=== PATIENT | female | born 1950 | race Caucasian/White ===

== ENCOUNTER 2017-05-24 16:53 | Emergency (ER) | payer MEDICARE ==
[~2017-05-24] VITALS: Ht 160 cm; Wt 78.0 kg
[~2017-05-24 16:53] MED LIST: ACET-687 PO; ALBU2.5V2 IH; ALPR0.25 PO; ALPR0.5T PO; ALPR1TAB6 PO; AMLO10TA2 PO; ASPI-655 PO; BUDE0.5A3 IH; BUDE0.5A3 NEB; DEXA1TAB PO; DICL1TAB5 PO; DIPH1TAB PO; ENOX40DI SQ; ESCI20TA PO; FAMO-75 PO; FAMO20TA5 PO; FLUT1AER IH; FLUT1DIS5 IH; FURO-80 PO; FURO-81 PO; GLIM4TAB2 PO; GUAI600T31 PO; INSU100I18 SQ; INSU100V8 SQ; IPRA4AER IH; Ipratropium/Albuterol Sulfate IH; LEVO500T8 PO; LEVO88TA2 PO; LISI-410 PO; LISI-414 PO; MONT10TA6 PO; POTA10CA PO; POTA20TA14 PO; SITA100T PO; SITA50TA PO; [UNRECOGNIZED DRUG - CODE] PO
[2017-05-24] MEDS ORDERED: DUONEB 0.5 MG-3 MG/3 ML SOLN IH STA (17:17)
[2017-05-24] MEDS ORDERED: DECADRON IH STA (17:17)
[2017-05-24] MEDS ORDERED: SOLU-MEDROL IM STA (17:17)
[2017-05-24] MEDS ORDERED: DUONEB 0.5 MG-3 MG/3 ML SOLN IH ONE (17:20)
[2017-05-24] MEDS ORDERED: SOLU-MEDROL ONE (17:20)
[2017-05-24] MEDS ORDERED: DECADRON ONE (17:20)
--- NOTE | 2017-05-24 17:21 | ER.PDOC ---
General Chief Complaint: Dyspnea/Respdistress Stated Complaint: SHORT OF BREATH,HIGH BP Time seen by MD: 17:19 Source: patient Exam Limitations: no limitations History of Present Illness Initial Comments Difficulty breathing for 4 days. No cough. Patient has not taken her Lasix for past few days because she forgot it at home. Severity: moderate Prior Episodes/Possible Cause: occasional episodes, chronic episodes Modifying Factors: improves with albuterol nebulizer Associated Symptoms: cough, wheezing Prior symptoms/Treatment: Similar symptoms previous Allergies: Coded Allergies: No Known Allergies (Unverified , 09/19/14) Home Meds Active Scripts Famotidine (FAMOTIDINE) 20 Mg Tablet, 20 MG PO BID for 30 Days, TABLET Prov:PREMA WATT MD 12/24/15 [Ipratropium/Albuterol Sulfate] 3 ML AMPUL.NEB No Conflict Check, 3 ML IH RTTID for 30 Days Prov:PREMA WATT MD 12/24/15 Albuterol Sulfate (ALBUTEROL SULFATE) 2.5 Mg/3 Ml Vial.neb, 2.5 MG IH PRN Y for WHEEZING for 30 Days Prov:PREMA WATT MD 12/24/15 Budesonide (PULMICORT) 0.5 Mg/2 Ml Ampul.neb, 0.5 MG IH RTBID, #30 BOTTLE Prov:PREMA WATT MD 10/04/14 Reported Medications Levofloxacin (LEVAQUIN) 500 Mg Tablet, 1 TAB PO DAILY for ANTIBIOTIC, #7 TAB 12/24/15 Potassium Chloride (POTASSIUM CHLORIDE) 20 Meq Tab.er.prt, 40 MEQ PO DAILY, #60 12/24/15 Furosemide (LASIX) 40 Mg Tablet, 1 TAB PO DAILY for WATER PILL, #60 TAB 0 Refills 12/24/15 Fluticasone/Vilanterol (Breo Ellipta 100-25 Mcg INH) 1 Each Aer.pow.ba, 1 EACH IH DAILY 12/17/15 Ipratropium/Albuterol Sulfate (COMBIVENT RESPIMAT INHAL SPRAY) 4 Gm Aer.w.adap, 4 GM IH PRN Y for SHORTNESS OF BREATH, INHALER 12/17/15 Sitagliptin Phosphate (JANUVIA) 50 Mg Tablet, 1 TAB PO DAILY, #30 TAB 5 Refills 12/17/15 Lisinopril (LISINOPRIL) 20 Mg Tablet, 1 TAB PO DAILY, #30 TAB 5 Refills 12/17/15 Insulin Glargine,Hum.rec.anlog (LANTUS) 100 Unit/1 Ml Vial, 10 UNIT SQ HS, VIAL 12/17/15 Insulin Aspart (NOVOLOG) 100 Unit/1 Ml Insuln.pen, 2 UNIT SQ AC 12/17/15 Alprazolam (XANAX) 0.5 Mg Tablet, 1 TAB PO TID, #90 TAB 12/17/15 Levothyroxine Sodium (SYNTHROID) 88 Mcg Tablet, 1 TAB PO DAILY, #30 TAB 5 Refills 12/17/15 Past Medical History Medical History: asthma, cancer, COPD, diabetes, emphysema, thyroid disease Surgical History: appendectomy, cancer surgery, hysterectomy, tonsillectomy Social History Smoking: non-smoker Alcohol Use: none Drug Use: none Review of Systems Constitutional: no symptoms reported EENTM: no symptoms reported Respiratory: see HPI Cardiovascular: no symptoms reported Gastrointestinal: no symptoms reported Genitourinary: no symptoms reported All Other Systems: Reviewed and Negative Physical Exam General Appearance: Mild Distress HEENT: Normal ENT Inspection Neck: Non-Tender, Full Range of Motion, Supple Respiratory: chest non-tender, respiratory distress, decreased breath sounds, wheezing Cardiovascular: Normal Peripheral Pulses, Regular Rate, Rhythm, No Edema, No Gallop, No JVD, No Murmur Gastrointestinal: Normal Bowel Sounds, No Organomegaly, No Pulsatile Mass, Non Tender, Soft Extremities: Normal Range of Motion 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 Results/Orders Results/Orders Laboratory Tests Test 05/24/17 17:35 05/24/17 17:54 White Blood Count 5.6 10^3/uL (4.5-11.0) Red Blood Count 4.03 10^6/uL (4.00-5.20) Hemoglobin 10.8 g/dL (12.0-15.0) Hematocrit 34.5 % (36.0-46.0) Mean Corpuscular Volume 85.6 fL (78-100) Mean Corpuscular Hemoglobin 26.8 pg (26-34) Mean Corpuscular Hemoglobin Concent 31.3 g/dL (33-37) Red Cell Distribution Width 14.2 % (11.5-14.5) Platelet Count 147 10^3/uL (150-400) Mean Platelet Volume 10.7 fL (7.8-11.0) Neutrophils (%) (Auto) 79.8 % (41.0-85.0) Lymphocytes (%) (Auto) 5.7 % (24.0-44.0) Monocytes (%) (Auto) 13.6 % (5.0-12.0) Neutrophils # (Auto) 4.5 10^3/uL (1.8-7.7) Lymphocytes # (Auto) 0.3 10^3/uL (1.0-4.8) Monocytes # (Auto) 0.8 10^3/uL (0.3-0.8) Absolute Immature Granulocyte (auto 0.03 10^3 u/L (0-2) Eosinophils % 0.2 % (0.0-5.0) Basophils % 0.2 % (0.0-0.2) Basophils # 0.0 10^3/uL (0.0-0.1) Eosinophil Count 0.0 10^3/uL (0.0-0.2) Prothrombin Time 12.0 SEC (9.8-11.9) Prothrombin Time INR (Non-Therap) 1.1 Activated Partial Thromboplast Time 25.6 SEC (24.67-30.72) D-Dimer 0.72 mg/L (0.19-0.49) Sodium Level 141 mmol/L (132-145) Potassium Level 3.5 mmol/L (3.6-5.2) Chloride Level 95.0 mmol/L (96-109) Carbon Dioxide Level 41.9 mmol/L (20.0-32) Anion Gap 7.6 Blood Urea Nitrogen 12 mg/dL (7-18) Creatinine 0.79 mg/dL (0.59-1.40) Estimated GFR () 88.4 (>/=60) BUN/Creatinine Ratio 15.0 Glucose Level 102 mg/dL (70-110) Calcium Level 8.7 mg/dL (8.4-10.5) Total Bilirubin 1.4 mg/dL (0.2-1.0) Aspartate Amino Transf (AST/SGOT) 34 U/L (0-35) Alanine Aminotransferase (ALT/SGPT) 22 U/L (12-78) Alkaline Phosphatase 76 U/L (50-136) Total Creatine Kinase 178 U/L (26-192) Creatine Kinase MB 5.2 ng/mL (0.5-3.6) Troponin I 0.04 ng/mL (0.00-0.05) Pro-B-Type Natriuretic Peptide 2995 pg/mL (0-125) Total Protein 7.2 g/dL (6.4-8.2) Albumin 3.1 g/dL (3.4-5.0) Globulin 4.1 Percent Immature Gran (Cell Imm) 0.50 % (0.00-0.50) Blood Gas Sample Site RT RADIAL ARTERY Blood Gas pH 7.383 (7.350-7.450) Blood Gas PCO2 66.9 mmHg (35.0-45.0) Blood Gas PO2 87.3 mmHg (75.0-100.0) Blood Gas HCO3 39.0 mmol/L (22.0-26.0) Blood Gas Base Excess 11.4 mmol/L (-2.0-2.0) Guilherme Test POSITIVE Arterial Blood Oxygen Saturation 96.4 % (95-) Deoxyhemoglobin 3.6 % (0.2-0.6) Carboxyhemoglobin 0.9 % (0.5-1.5) Methemoglobin 0.0 % (0.2-0.6) Total Hemoglobin 12.0 % (13.5-17.5) Total Oxygen Concentration 16.2 % (13.5-17.5) Lactic Acid (Blood Gas) 0.7 MMOL/L (0.5-1.0) Blood Gas Temperature 37 Oxygen Delivery Method (LAB) NASAL CANNULA FiO2 32 % (20-101) Bicarbonate 41.0 mmol/L (23-27) Administered Medications Medications (Trade) Dose Ordered Sig/Humphrey Route PRN Reason Start Time Stop Time Status Last Admin Dose Admin Albuterol/ Ipratropium (Duoneb 0.5 Mg-3 Mg/3 ml Soln) 3 ml STAT STAT IH 05/24/17 17:17 05/24/17 17:21 DC 05/24/17 18:04 Dexamethasone Sodium Phosphate (Decadron) 4 mg STAT STAT IH 05/24/17 17:17 05/24/17 17:21 DC 05/24/17 18:04 Methylprednisolone Sodium Succinate (Solu-Medrol) 125 mg STAT STAT IM 05/24/17 17:17 05/24/17 17:21 DC 05/24/17 17:24 Progress Progress Spoke to Dr. Muñoz on observing patient in the Hospital but he told me to give her IV Lasix and discharge her home. EKG/XRAY/CT/US EKG: NSR XRAY: chest (Mild pumonary congestion) Course Blood Pressure Systolic: 165 Blood Pressure Diastolic: 111 Blood Pressure Mean: 129 Departure Time of Disposition: 18:48 Disposition: 01 HOME, SELF-CARE Impression: Primary Impression: Acute exacerbation of chronic obstructive pulmonary disease Additional Impression: Congestive heart failure Condition: Stable Referrals: PCP,UNKNOWN (PCP) PRIMARY CARE PROVIDER Additional Instructions: Z pack Prednisone Lasix Potassium Monitor your blood sugar closely and stop Prednisone if greater than 250 F/U with your PCP in 2-3 days Problem Qualifiers Additional Impression: Congestive heart failure Congestive heart failure type: unspecified congestive heart failure type Congestive heart failure chronicity: unspecified congestive heart failure chronicity Qualified Codes: I50.9 - Heart failure, unspecified EDIE PISANO MD May 24, 2017 17:21
--- NOTE | 2017-05-24 17:32 | PCM.EKG ---
[facility] Test Date: 2017-05-24 Test Time: 17:29:24 Pat Name: RUBINA DENNEY Department: Room: Gender: F Tie Man: : 1950 Requested By: EDIE PISANO Order Number: [id number] Reading MD: Measurements Intervals [place] Rate: 68 P: 73 MS: 126 QRS: -39 QRSD: 100 T: 67 QT: 440 QTc: 467 Interpretive Statements Normal sinus rhythm Left axis deviation Abnormal ECG No previous ECG available for comparison Please click the below link to view image of tracing.
--- NOTE | 2017-05-24 17:38 | DIREP ---
PROCEDURE:CHEST 1 VIEW COMPARISON:[facility], CR, XRAY CHEST SINGLE VW, 12/29/2015, 11:10 AM. INDICATIONS:Difficulty breathing FINDINGS: LUNGS/PLEURA:Lordotic projection and low lung volumes. No definite focal infiltrate or pleural effusion. CARDIAC:Median sternotomy. Size difficult to evaluate due to elevated hemidiaphragms. Prominent central pulmonary vascularity. Aortic arch calcifications. MEDIASTINUM:Normal. 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 OTHER:No additional findings. CONCLUSION: 1. Study limited by low lung volumes. 2. Mild pulmonary vascular congestion versus accentuation from low lung volumes. Dictated by: Shikha Gonzales MD on 05/24/2017 at 05:34 PM
[2017-05-24 17:45] LABS: BASOPHIL % 0.2 % (0.0-0.2); EOSINOPHIL % 0.2 % (0.0-5.0); HEMOGLOBIN 10.8 g/dL (12.0-15.0); LYMPHOCYTES # 0.3 10^3/uL (1.0-4.8); LYMPHOCYTES % 5.7 % (24.0-44.0); MEAN CELL HGB 26.8 pg (26-34); MEAN CELL HGB CONCENTRATION 31.3 g/dL (33-37); MEAN CORP VOLUME 85.6 fL (78-100); MEAN PLATELET VOLUME 10.7 fL (7.8-11.0); MONOCYTES # 0.8 10^3/uL (0.3-0.8); MONOCYTES % 13.6 % (5.0-12.0); NEUTROPHIL # 4.5 10^3/uL (1.8-7.7); NEUTROPHILS % 79.8 % (41.0-85.0); RED CELL DISTRIBUTION WIDTH 14.2 % (11.5-14.5); WHITE BLOOD CELL 5.6 10^3/uL (4.5-11.0)
[2017-05-24 18:04] LABS: ABG PCO2 66.9 mmHg (35.0-45.0); ABG PH 7.383 (7.350-7.450); BE(B) 11.4 mmol/L (-2.0-2.0); pO2 87.3 mmHg (75.0-100.0)
[2017-05-24 18:13] LABS: CALCIUM 8.7 mg/dL (8.4-10.5); CARBON DIOXIDE 41.9 mmol/L (20.0-32)
--- NOTE | 2017-05-24 18:31 | NUR ---
MARYSOL SERRANO MBA ON PHONE WITH DR GREGG AT THIS TIME REGARDING PT.
[2017-05-24] MEDS ORDERED: LASIX IV STA (18:48)
[2017-05-24 19:04] VITALS: BP 165/111
[2017-05-24 20:57] LABS: DIFFERENTIAL COMMENT NORMAL; EOSINOPHIL 1 % (1-4); LYMPHOCYTE 3 % (25-36); MONOCYTE 7 % (3-9); SEGMENTED NEUTROPHILS 89 % (31-76)
== END 2017-05-24 19:15 | disposition home or self-care (01) ==
LOC: ER 16:53
DX: J44.1 Chronic obstructive pulmonary disease with (acute) exacerbation (principal); I50.9 Heart failure, unspecified; E07.9 Disorder of thyroid, unspecified; E11.9 Type 2 diabetes mellitus without complications; Z79.4 Long term (current) use of insulin; Z90.710 Acquired absence of both cervix and uterus; Z79.899 Other long term (current) drug therapy
CPT/HCPCS: 36415; 71010; 80053; 82550; 82553; 82803; 83880; 84484; 85025; 85379; 85610; 87040 ×2; 93005; 94640; 96372; 96374; 99285; J1100; J2930; J7620

== ENCOUNTER 2017-05-25 22:20 | Inpatient (IN) | payer MEDICARE ==
[~2017-05-25] VITALS: Ht 154.9 cm; Wt 79.4 kg
--- NOTE | 2017-05-25 22:27 | NUR ---
UPDATE THIS NURSE ADMINISTERED DIPRIVAN DRIP ORDERED. Addendum: 05/26/17 at 1439 by [email or web address] UPDATE [id number] TIME ON ADMINISTRATION OF DIPRIVAN DRIP.
--- NOTE | 2017-05-25 22:27 | NUR ---
ARRIVAL PATIENT TO ER ROOM 2 IN REST DISTRESS, SATS AT 59 ON 6L NC, PATIENT ABGS ACIDODIC, ASSESSMENT COMPLETED, MD AT BEDSIDE, REQUESTING CENTRAL LINE PLACEMENT AND INTUBATION AT THIS TIME, PATIENT HYPERTENSIVE AND TACHACARDIC, THIS NURSE, SLICK RN AND HESHAM RN AT BEDSIDE, ZAYNAB NAVARRETE AT BEDSIDE.
--- NOTE | 2017-05-25 22:44 | NUR ---
CENTRAL LINE PLACED BY DR. VILLARREAL, CONSENTS SIGNED BY DAUGHTER.
--- NOTE | 2017-05-25 22:48 | NUR ---
UPDATE 10MG OF VERSED GIVEN, 100MG OF SUCCS GIVEN
--- NOTE | 2017-05-25 22:51 | NUR ---
UPDATE INTUBATION COMPLETED
--- NOTE | 2017-05-25 22:53 | NUR ---
UPDATE SYKES CATHETER INSERTED
--- NOTE | 2017-05-25 22:54 | NUR ---
UPDATE 50MG SUCCS GIVEN
--- NOTE | 2017-05-25 22:54 | NUR ---
UPDATE EPI 1MG GIVEN Addendum: 05/26/17 at 1435 by [email or web address] TIME ON PATIENT WAS 2354, NOT 5704.
[2017-05-25] MEDS: LEVAQUIN 150 ML IV SCH (23:00)
--- NOTE | 2017-05-25 23:09 | NUR ---
DR GREGG EDP ON PHONE WITH MARYSOL FOR ADMISSION
[2017-05-25 23:11] LABS: BASOPHIL # 0.1 10^3/uL (0.0-0.1); BASOPHIL % 0.1 % (0.0-0.2); HEMOGLOBIN 12.1 g/dL (12.0-15.0); LYMPHOCYTES # 4.6 10^3/uL (1.0-4.8); LYMPHOCYTES % 13.1 % (24.0-44.0); MEAN CELL HGB 26.4 pg (26-34); MEAN CELL HGB CONCENTRATION 30.1 g/dL (33-37); MEAN CORP VOLUME 87.8 fL (78-100); MEAN PLATELET VOLUME 11.3 fL (7.8-11.0); MONOCYTES # 4.7 10^3/uL (0.3-0.8); MONOCYTES % 13.4 % (5.0-12.0); NEUTROPHIL # 25.6 10^3/uL (1.8-7.7); NEUTROPHILS % 72.7 % (41.0-85.0); RED CELL DISTRIBUTION WIDTH 14.4 % (11.5-14.5)
--- NOTE | 2017-05-25 23:15 | NUR ---
UPDATE DR. VILLARREAL ORDERED DIPRAVAN DRIP AT 25MCG/KG/MIN TO BE STARTED BEFORE TRANSPORT.
[2017-05-25 23:16] LABS: WHITE BLOOD CELL 35.2 10^3/uL (4.5-11.0)
[2017-05-25 23:28] LABS: ABG PH 7.088 (7.350-7.450); BE(B) 15.9 mmol/L (-2.0-2.0); HCO3act 53.4 mmol/L (22.0-26.0); pO2 43.8 mmHg (75.0-100.0)
[2017-05-25] MEDS ORDERED: SOLU-MEDROL IV STA (23:28)
[2017-05-25] MEDS ORDERED: NS 1000ML 1,000 ML ONE (23:31)
--- NOTE | 2017-05-25 23:33 | PCM.EKG ---
[facility] Test Date: 2017-05-25 Test Time: 23:11:00 Pat Name: RUBINA DENNEY Department: Room: ICU3 Gender: F Nut Sorter: JOSE : 1950 Requested By: HEATHER VILLARREAL Order Number: [id number] Reading MD: Zeferino PISANO Measurements Intervals [place] Rate: 95 P: 82 [place]: 134 QRS: -70 QRSD: 84 T: 43 QT: 380 QTc: 477 Interpretive Statements Normal sinus rhythm Left anterior fascicular block Nonspecific ST abnormality Abnormal ECG No previous ECG available for comparison Electronically Signed On 05-26-2017 22:34:59 CONSULTING GROUP ANALYST by Zeferino PISANO Please click the below link to view image of tracing.
[2017-05-25 23:35] LABS: ALANINE AMINOTRANSFERASE 22 U/L (12-78); ALKALINE PHOSPHATASE 81 U/L (50-136); ASPARTATE AMINO TRANSFERASE 30 U/L (0-35); CALCIUM 8.8 mg/dL (8.4-10.5); GLUCOSE 255 mg/dL (70-110)
[2017-05-25 23:37] LABS: CARBON DIOXIDE > 45.0 mmol/L (20.0-32)
[2017-05-25] MEDS ORDERED: LEVAQUIN 150 ML IV ONE (23:38)
[2017-05-25] MEDS ORDERED: SOLU-MEDROL ONE (23:38)
--- NOTE | 2017-05-25 23:38 | NUR ---
UPDATE PATIENT DIPRIVAN STOPPED, ASSESSING PATIENT PRESSURES, PATIENT HAS COROITID PULSE, FAMILY ASKS TO BE WITH PATIENT AT THIS TIME.
--- NOTE | 2017-05-25 23:38 | ER.PDOC ---
General Chief Complaint: Dyspnea/Respdistress Stated Complaint: RESP DISTRESS Time seen by MD: 10:45 Source: family History of Present Illness Initial Comments pt has Hx of of COPD had been seen yesterday and she developed severe respiratory distress. Sao2 was low and EMS was called. Timing/Duration: 1-3 hours Severity: severe Activities at Onset: rest Associated Symptoms: weakness Prior symptoms/Treatment: Similar symptoms previous, Recenly Seen, Treated by Doctor Allergies: Coded Allergies: No Known Allergies (Unverified , 09/19/14) Home Meds Active Scripts Famotidine (FAMOTIDINE) 20 Mg Tablet, 20 MG PO BID for 30 Days, TABLET Prov:PREMA WATT MD 12/24/15 [Ipratropium/Albuterol Sulfate] 3 ML AMPUL.NEB No Conflict Check, 3 ML IH RTTID for 30 Days Prov:PREMA WATT MD 12/24/15 Albuterol Sulfate (ALBUTEROL SULFATE) 2.5 Mg/3 Ml Vial.neb, 2.5 MG IH PRN Y for WHEEZING for 30 Days Prov:PREMA WATT MD 12/24/15 Budesonide (PULMICORT) 0.5 Mg/2 Ml Ampul.neb, 0.5 MG IH RTBID, #30 BOTTLE Prov:PREMA WATT MD 10/04/14 Reported Medications Levofloxacin (LEVAQUIN) 500 Mg Tablet, 1 TAB PO DAILY for ANTIBIOTIC, #7 TAB 12/24/15 Potassium Chloride (POTASSIUM CHLORIDE) 20 Meq Tab.er.prt, 40 MEQ PO DAILY, #60 12/24/15 Furosemide (LASIX) 40 Mg Tablet, 1 TAB PO DAILY for WATER PILL, #60 TAB 0 Refills 12/24/15 Fluticasone/Vilanterol (Breo Ellipta 100-25 Mcg INH) 1 Each Aer.pow.ba, 1 EACH IH DAILY 12/17/15 Ipratropium/Albuterol Sulfate (COMBIVENT RESPIMAT INHAL SPRAY) 4 Gm Aer.w.adap, 4 GM IH PRN Y for SHORTNESS OF BREATH, INHALER 12/17/15 Sitagliptin Phosphate (JANUVIA) 50 Mg Tablet, 1 TAB PO DAILY, #30 TAB 5 Refills 12/17/15 Lisinopril (LISINOPRIL) 20 Mg Tablet, 1 TAB PO DAILY, #30 TAB 5 Refills 12/17/15 Insulin Glargine,Hum.rec.anlog (LANTUS) 100 Unit/1 Ml Vial, 10 UNIT SQ HS, VIAL 12/17/15 Insulin Aspart (NOVOLOG) 100 Unit/1 Ml Insuln.pen, 2 UNIT SQ AC 12/17/15 Alprazolam (XANAX) 0.5 Mg Tablet, 1 TAB PO TID, #90 TAB 12/17/15 Levothyroxine Sodium (SYNTHROID) 88 Mcg Tablet, 1 TAB PO DAILY, #30 TAB 5 Refills 12/17/15 Past Medical History Medical History: asthma, cardiac problems, COPD, diabetes, hypertension Surgical History: no surgical history LMP (females 10-50): postmenopause Social History Smoking: non-smoker Alcohol Use: none Drug Use: none Physical Exam General Appearance: Severe Distress, Obese Respiratory: respiratory distress, decreased breath sounds, retractions Cardiovascular: Tachycardia Extremities: Pedal Edema Neurologic/Psychiatric: No Motor/Sensory Deficits Skin: Warm/Dry, Mottled Lymphatic: No Adenopathy Central Line Central Line : Central Line Lumen: triple Central Line Procedure: betadine prep, sterile drapes applied, sterile dressing applied Central Line Postion: subclavian (L) Anesthesia: Lidocaine Progress TLC via seldinger technique took 3 sticks as pt is very dry, Good blood return, CXR TLC in SVC Intubation Intubation : Blade: straight Tube Size (cm): 7.5 Preoxygenated: Yes Medications: Succinylcholine, Versed Post Intubation Xray: Yes Progress/Xray Impression: no PTX, ETT 2 cm above aaron Results/Orders Results/Orders Laboratory Tests Test 05/25/17 22:19 05/25/17 22:40 Blood Gas Sample Site RT RADIAL ARTERY Blood Gas pH 7.088 (7.350-7.450) Blood Gas PCO2 181.0 mmHg (35.0-45.0) Blood Gas PO2 43.8 mmHg (75.0-100.0) Blood Gas HCO3 53.4 mmol/L (22.0-26.0) Blood Gas Base Excess 15.9 mmol/L (-2.0-2.0) Guilherme Test POSITIVE Arterial Blood Oxygen Saturation 60.5 % (95-) Deoxyhemoglobin 38.8 % (0.2-0.6) Carboxyhemoglobin 1.2 % (0.5-1.5) Methemoglobin 0.5 % (0.2-0.6) Total Hemoglobin 14.2 % (13.5-17.5) Total Oxygen Concentration 11.9 % (13.5-17.5) Lactic Acid (Blood Gas) 1.6 MMOL/L (0.5-1.0) Oxygen Delivery Method (LAB) NASAL CANNULA FiO2 45 % (20-101) Bicarbonate 59.0 mmol/L (23-27) White Blood Count 35.2 10^3/uL (4.5-11.0) Red Blood Count 4.58 10^6/uL (4.00-5.20) Hemoglobin 12.1 g/dL (12.0-15.0) Hematocrit 40.2 % (36.0-46.0) Mean Corpuscular Volume 87.8 fL (78-100) Mean Corpuscular Hemoglobin 26.4 pg (26-34) Mean Corpuscular Hemoglobin Concent 30.1 g/dL (33-37) Red Cell Distribution Width 14.4 % (11.5-14.5) Platelet Count 322 10^3/uL (150-400) Mean Platelet Volume 11.3 fL (7.8-11.0) Neutrophils (%) (Auto) 72.7 % (41.0-85.0) Lymphocytes (%) (Auto) 13.1 % (24.0-44.0) Monocytes (%) (Auto) 13.4 % (5.0-12.0) Neutrophils # (Auto) 25.6 10^3/uL (1.8-7.7) Lymphocytes # (Auto) 4.6 10^3/uL (1.0-4.8) Monocytes # (Auto) 4.7 10^3/uL (0.3-0.8) Absolute Immature Granulocyte (auto 0.25 10^3 u/L (0-2) Eosinophils % 0.0 % (0.0-5.0) Basophils % 0.1 % (0.0-0.2) Basophils # 0.1 10^3/uL (0.0-0.1) Eosinophil Count 0.0 10^3/uL (0.0-0.2) Percent Immature Gran (Cell Imm) 0.70 % (0.00-0.50) Progress Progress discussed findings with Dr Baptiste who accepts pt to ICU. Departure Time of Disposition: 23:40 Disposition: 09 ADMITTED INPATIENT Impression: Primary Impression: Acute exacerbation of chronic obstructive pulmonary disease Additional Impression: Respiratory failure Condition: Critical Referrals: PCP,UNKNOWN (PCP) PRIMARY CARE PROVIDER Problem Qualifiers Additional Impression: Respiratory failure Chronicity: acute Respiratory failure complication: hypercapnia Qualified Codes: J96.02 - Acute respiratory failure with hypercapnia HEATHER VILLARREAL MD May 25, 2017 23:38
--- NOTE | 2017-05-25 23:50 | NUR ---
UPDATE EPI 1MG
--- NOTE | 2017-05-25 23:52 | NUR ---
UPDATE PATIENT RYTHM CHECK, PEA
--- NOTE | 2017-05-25 23:54 | NUR ---
UPDATE PATIENT IN PEA
[2017-05-25 23:55] LABS: BAND NEUTROPHILS 2 % (2-6); LYMPHOCYTE 4 % (25-36); MONOCYTE 15 % (3-9); SEGMENTED NEUTROPHILS 79 % (31-76)
--- NOTE | 2017-05-25 23:55 | NUR ---
UPDATE EPI 1MG GIVEN IV
--- NOTE | 2017-05-25 23:57 | NUR ---
ROSC PULSE 167
[2017-05-25] MEDS ORDERED: NS 500ML 500 ML IV ONE (23:59)
[2017-05-26] VITALS (17 sets, daily range): BP systolic 98–165; BP diastolic 53–113
--- NOTE | 2017-05-26 00:03 | DIREP ---
PROCEDURE:CHEST 1 VIEW COMPARISON:[facility], CR, XRAY CHEST SINGLE VW, 12/20/2015, 07:45 AM. [facility], CR, XRAY CHEST SINGLE VW, 05/24/2017, 05:17 PM. [facility], CR, XRAY CHEST SINGLE VW, 12/29/2015, 11:10 AM. INDICATIONS:SOB, COPD exacerbation FINDINGS: Portable frontal view of the chest is provided. The patient is rotated somewhat to the left. LINES/TUBES: ETT is been placed and is well positioned above the aaron at the T3-4 level. Left subclavian catheter is appropriately positioned with its tip overlying the region of the proximal SVC. Gastric catheter is is kinked upon itself in the mid thoracic esophagus with its tip at the T9 level. LUNGS/PLEURA: Mild hyperinflation with flattening of hemidiaphragms, consistent with COPD. No focal consolidation, pleural effusion, or pneumothorax. CARDIAC: Normal size cardiac silhouette and normal vascularity. Stable postoperative changes of prior median sternotomy. Stable calcified plaque the aortic knob. MEDIASTINUM: Normal. BONES: Stable low grade chondroid lesion versus remote bone infarction in the greater tuberosity of the left proximal humerus. Mild, right convexity, thoracic curvature, which may be positional. No acute abnormality. OTHER: No additional findings. CONCLUSION: 1. Gastric catheter is coiled upon itself in the mid thoracic esophagus. Repositioning is recommended. 2. ETT and left subclavian catheter are appropriately positioned. 3. Findings suggestive of COPD. No focal consolidation, pleural effusion, or pneumothorax. 4. Stable postoperative changes of prior median sternotomy. Heart size and pulmonary vasculature are normal. Dictated by: William Steele M.D. On 05/25/2017 at 11:59 PM
--- NOTE | 2017-05-26 00:03 | NUR ---
UPDATE DR. VILLARREAL ON THE PHONE WITH DR. GREGG REQUESTING FLIGHT TO [place] AFTER ROSC ACHIEVED ON PATIENT.
--- NOTE | 2017-05-26 00:07 | NUR ---
UPDATE EPI DRIP 5MCG/MIN
--- NOTE | 2017-05-26 00:08 | NUR ---
UPDATE DR. GREGG DENIED TRANSPORT, PATIENT TO BE ADMITTED TO ICU. GAVE ORDERS TO DR. VILLARREAL, FAMILY MADE AWARE OF SITUATION.
--- NOTE | 2017-05-26 00:12 | NUR ---
UPDATE EPI DRIP @ 15MCG/MIN
--- NOTE | 2017-05-26 00:15 | NUR ---
UPDATE EPI 1MG GIVEN IV HR 63
--- NOTE | 2017-05-26 00:17 | NUR ---
UPDATE PULSE CHECK
--- NOTE | 2017-05-26 00:19 | NUR ---
UPDATE EPI DRIP @ 20MCG/MIN
--- NOTE | 2017-05-26 00:20 | NUR ---
UPDATE PULASE CHECK
--- NOTE | 2017-05-26 00:20 | NUR ---
ROSC PULSE FAINT V FIB ON MONITOR HR 170 0021 SHOCK DELIVERED 200 JOULES 0022 HR 122 PULSES INTACT
--- NOTE | 2017-05-26 00:20 | NUR ---
UPDATE PATIENT RYTHEM CHECK, PEA
--- NOTE | 2017-05-26 00:21 | NUR ---
UPDATE SHOCK @ 150 JOULES
--- NOTE | 2017-05-26 00:22 | NUR ---
UPDATE PULSE CHECK HR AT 166 ROSC
--- NOTE | 2017-05-26 00:23 | NUR ---
ROSC PULSE 150
[2017-05-26] MEDS ORDERED: HEPARIN ONE (00:27)
--- NOTE | 2017-05-26 00:32 | NUR ---
HEPARIN HEPARIN 5000 UNIT BOLUS GIVEN IVP
--- NOTE | 2017-05-26 00:40 | NUR ---
NS NS 2ND LITER HUNG
--- NOTE | 2017-05-26 00:50 | NUR ---
FAMILY FAMILY AT BEDSIDE
--- NOTE | 2017-05-26 01:12 | NUR ---
PUPILS PUPILS 5 MM NON REACTIVE EQUAL
[2017-05-26] MEDS ORDERED: LEVOPHED ONE ×2 (02:13→02:19)
--- NOTE | 2017-05-26 02:22 | NUR ---
levophed levophed 8mg/250ml hung at 10 mcg/ min
--- NOTE | 2017-05-26 02:35 | PCM.EKG ---
[facility] Test Date: 2017-05-26 Test Time: 00:00:18 Pat Name: RUBINA DENNEY Department: Room: ICU3 A Gender: F Coat Finisher: JOSE : 1950 Requested By: HEATHER VILLARREAL Order Number: [id number] Reading MD: Zeferino PISANO Measurements Intervals [place] Rate: 152 P: DC: QRS: -79 QRSD: 126 T: 83 QT: 334 QTc: 531 Interpretive Statements Atrial fibrillation Right bundle branch block Left anterior fascicular block Bifascicular block Septal infarct, age undetermined Abnormal ECG No previous ECG available for comparison Electronically Signed On 05-26-2017 22:35:20 PUBLIC HEALTH REGISTRAR by Zeferino PISANO Please click the below link to view image of tracing.
--- NOTE | 2017-05-26 02:40 | NUR ---
levophed levophed increased to 20mcg/min
[2017-05-26] MEDS ORDERED: NS 1000ML 1,000 ML ONE (03:13)
--- NOTE | 2017-05-26 03:15 | NUR ---
NS LITER #3 HUNG
[2017-05-26] MEDS ORDERED: ZOFRAN IV PRN (03:30)
[2017-05-26] MEDS ORDERED: LEVOPHED 8 MG in NS 250ML 250 ML IV SCH (03:30)
[2017-05-26] MEDS ORDERED: HEPARIN-D5W 20,000 UNIT/500 ML 500 ML IV ONE ×2 (03:30→03:39)
--- NOTE | 2017-05-26 03:37 | NUR ---
levophed increased to 30mcg/min
--- NOTE | 2017-05-26 04:00 | NUR ---
Patient Arrived Patient arrived to unit via stretcher from ED. RT ventilating patient. Patient transferred to bed, ventilator attached to ET tube by RT. Monitors applied in usual fashion, report received from ER nurse, assumed care.
--- NOTE | 2017-05-26 04:30 | NUR ---
Flex Seal Flexiseal inserted along with rectal temp prob per telephone orders from Dr. Muñoz.
[2017-05-26 05:08] LABS: ABG PCO2 45.4 mmHg (35.0-45.0); ABG PH 7.375 (7.350-7.450); BE(B) 0.4 mmol/L (-2.0-2.0); pO2 263.3 mmHg (75.0-100.0)
[2017-05-26 05:19] LABS: BASOPHIL # 0.1 10^3/uL (0.0-0.1); BASOPHIL % 0.1 % (0.0-0.2); HEMOGLOBIN 11.8 g/dL (12.0-15.0); LYMPHOCYTES # 1.1 10^3/uL (1.0-4.8); LYMPHOCYTES % 2.3 % (24.0-44.0); MEAN CELL HGB 26.6 pg (26-34); MEAN CELL HGB CONCENTRATION 30.7 g/dL (33-37); MEAN CORP VOLUME 86.5 fL (78-100); MEAN PLATELET VOLUME 10.9 fL (7.8-11.0); MONOCYTES # 3.1 10^3/uL (0.3-0.8); MONOCYTES % 6.7 % (5.0-12.0); NEUTROPHIL # 42.2 10^3/uL (1.8-7.7); NEUTROPHILS % 90.1 % (41.0-85.0); RED CELL DISTRIBUTION WIDTH 14.7 % (11.5-14.5)
[2017-05-26 05:39] LABS: WHITE BLOOD CELL 46.8 10^3/uL (4.5-11.0)
[2017-05-26 06:01] LABS: BAND NEUTROPHILS 2 % (2-6); MONOCYTE 6 % (3-9); SEGMENTED NEUTROPHILS 92 % (31-76)
[2017-05-26 06:30] LABS: CARBON DIOXIDE 27.7 mmol/L (20.0-32)
[2017-05-26] MEDS ORDERED: MOTRIN NG PRN (06:30)
--- NOTE | 2017-05-26 07:14 | NUR ---
TIME OF NO HEART TONES AUSCULTATED, NO PULSES PALPABLE, NO SPONTANEOUS RESPIRATIONS. PUPILS FIXED AND DILATED. TIME OF 07, PRONOUNCED BY MYSELF AND JUNIOR RENDON RN PER PROTOCOL.
--- NOTE | 2017-05-26 07:14 | NUR ---
0600-Titration Levophed titrated to 25mcg/min. SBP 165. 0620 Titration Patient HR 165 Levophed titrated to 20mcg/min 0630 Titration Patient HR continues to stay 160s SBP trending down see V/S record. Levophed titrated back to 30mcg/min. 0650 Titration Patient HR continues to be tachycardia and SBP continues to trend downward. Levophed increased to 35mcg/min. SBP improved and HR decreased to 140s 0708 Bradycardia Patients HR now 50s with levophed 35mcg/min. Unable to assess BP, pulses not palpable. [address] Muñoz notified, no orders received. 07 Time of verified by Faiza Poe RN, and Isabell Mitchell RN. Addendum: 05/26/17 at 0935 by Elida Poe RN - COUNSELING CENTER MANAGER 0710 DR MUÑOZ NOTIFIED NEW ORDERS RECEIVED FOLLOW PROTOCOL, NURSES MAY PRONOUNCE, WILL NOTIFY FAMILY. WILL NOTIFY [employer] ARCHITECT, WILL NOTIFY JESS DUE TO IN PT LESS THAN 24 HOURS.WILL NOTIFY [employer].
--- NOTE | 2017-05-26 07:28 | NUR ---
[employer] NOTIFIED PER POLICY. ID # [id number], INTAKE INFORMATION TO MARTHA KENT. PER [employer], PATIENT IS NOT A CANDIDATE FOR [employer] PER MARTHA KENT.
--- NOTE | 2017-05-26 08:00 | NUR ---
JUST[employer], KENA NIÑO, NOTIFIED PER POLICY, BY SOCK EXAMINER, RITCHIE ALVARNEGA.
--- NOTE | 2017-05-26 08:02 | NUR ---
FAMILY PATIENT'S FAMILY ARRIVES AT BEDSIDE. STATUS UPDATE PROVIDED. PRIVACY PROVIDED.
--- NOTE | 2017-05-26 08:37 | NUR ---
[employer] JUST[employer] PE[employer], KENA NIÑO AT BEDSIDE.
--- NOTE | 2017-05-26 08:45 | PRM.DC ---
Discharge Summary Reason for Visit: Respiratory failure Additional Comments this 66-year-old lady with history of advanced COPD, hypertension and diabetes mellitus. Presented to the emergency room with acute respiratory failure brought in by EMS. Evaluation emergency room showed the patient to be in severe respiratory failure, profound hypercapnia noted with ABGs showing severe acidosis respiratory in nature and PCO2 of 181. PH of 7.08, the patient had to be intubated emergency room to treat the acute respiratory decompensation, this was followed by cardiac arrest and advanced life support was performed with voodoo of and pulse patient remained hypotensive, when sitting were adjusted to correct for hypercapnia and respiratory failure. The patient was started on heparin drip for potential pulmonary embolism on top of the respiratory failure as d-dimer levels were therapeutic activated. Profound leukocytosis was also noted indicating the ASSOCIATED sepsis as well. PCO2 levels were extremely elevated incompetable with survival, profond acidosis noted, a high likely camacho of PE noted, imaging was impossible as pt was hemodynamically unstable, yet, Heparin drip started for management. The patient was made DNR by family members in the emergency room and was admitted to the ICU on a ventilator, drip, heparin drip and IV fluids. The prognosis was extremely poor at the point of presentation. lengthy discussion with all available family member about the diagnosis, prognosis and care provided, all the questions were answered, all concerns addressed, family verbalized their understanding and voiced satisfaction about the care provided. the case was also discussed with the JESS in the ICU, all questions were answered. Patient History: Chronic obstructive pulmonary disease 32 MOTHER Diabetes mellitus G8 SISTER No Family History of: Alzheimer's disease Asthma Cerebrovascular disorder Congestive heart failure Diabetes insipidus Hypertension Parkinson's disease History Present Illness: Scheduled Alprazolam (Xanax), 1 TAB PO TID, (Reported) Budesonide (Pulmicort), 0.5 MG IH RTBID Famotidine (Famotidine), 20 MG PO BID Fluticasone/Vilanterol (Breo Ellipta 100-25 Mcg INH), 1 EACH IH DAILY, (Reported ) Furosemide (Lasix), 1 TAB PO DAILY, (Reported) Insulin Aspart (Novolog), 2 UNIT SQ AC, (Reported) Insulin Glargine,Hum.rec.anlog (Lantus), 10 UNIT SQ HS, (Reported) Levofloxacin (Levaquin), 1 TAB PO DAILY, (Reported) Levothyroxine Sodium (Synthroid), 1 TAB PO DAILY, (Reported) Lisinopril (Lisinopril), 1 TAB PO DAILY, (Reported) Potassium Chloride (Potassium Chloride), 40 MEQ PO DAILY, (Reported) Sitagliptin Phosphate (Januvia), 1 TAB PO DAILY, (Reported) [Ipratropium/Albuterol Sulfate], 3 ML IH RTTID Scheduled PRN Albuterol Sulfate (Albuterol Sulfate), 2.5 MG IH PRN PRN for WHEEZING Ipratropium/Albuterol Sulfate (Combivent Respimat Inhal Beryl), 4 GM IH PRN PRN for SHORTNESS OF BREATH, (Reported) Sepsis Evaluation @ Discharge Course Blood Pressure Systolic: 120 Blood Pressure Diastolic: 65 Blood Pressure Mean: 83 Plan Assessment - acute severe respiratory failure - severe hypercapnia - severe respiratory acidosis -high likely camacho of pulmonary embolism. DDimer levels were significantly elevated, - leukocytosis with sepsis - cardiopulmonary arrest in the emergency room - acute myocardial infarction with elevated cardiac enzymes - Severe decompensation of COPD - extensive history of heavy smoking. - diabetes mellitus with complications - acute renal failure -DNR status. Patient was admitted to the ICU for critical care; respiratory failure, cardiac failure, PE, and sepsis were addressed and treated according to protocols, vasopressors given fluid management optimized, ABGs were requested for follow-up, chest x-ray showed good ET tube placement the patient was made DNR in the emergency room. condition deteriorated after hospitalization, with poor repsonse to optimal care. the patient was pronounced at 7:14 AM on 2016 with cardio-pulmonary arrest. family were notified. condition discussed prognosis has already been indicated on admission to be extremely poor with the concomitant Severe morbid presentations. family voiced undertanding and satisfaction. [facility] attended to ICU and discussed the details. JERMAINE GREGG MD May 26, 2017 08:45
--- NOTE | 2017-05-26 09:00 | NUR ---
DR. MARYSOL GREGG AT BEDSIDE.
--- NOTE | 2017-05-26 09:18 | NUR ---
HOME [facility] NOTIFIED BY KENA NIÑO JP.
--- NOTE | 2017-05-26 09:46 | NUR ---
[facility]PARVINHEAL [facility] CARMICHEAL [facility]KY AT BEDSIDE. FAMILY REMAINS AT BEDSIDE.
--- NOTE | 2017-05-26 10:16 | NUR ---
DISCHARGE BODY RELEASED TO [facility]. DAUGHTER WAS GIVEN PATIENT'S EARRINGS, GLASSES, NECKLACE, BRA, AND A RING (REMOVED AT THIS TIME FROM PATIENT'S RIGHT RING FINGER BY [facility]). NO OTHER PERSONAL EFFECTS WERE AT BEDSIDE.
[2017-05-26] MEDS ORDERED: DIPRIVAN IV ONE (13:46)
[2017-05-26] MEDS ORDERED: EPINEPHRINE ONE (13:46)
[2017-05-26] MEDS ORDERED: QUELICIN ONE (13:46)
[2017-05-27] MEDS ORDERED: LEVAQUIN 150 ML IV SCH (21:00)
== END 2017-05-26 10:16 | disposition expired | DRG 871 ==
LOC: EDBD 22:20 → ER 22:20 → ICU 23:22
PROVIDERS: ADMIT Internal Medicine; ATTEND Internal Medicine
PROC: 5A1935Z Respiratory Ventilation, Less than 24 Consecutive Hours (ICD-10-PCS; principal; 2017-05-25)
PROC: 0BH17EZ Insertion of Endotracheal Airway into Trachea, Via Natural or Artificial Opening (ICD-10-PCS; 2017-05-25)
PROC: 02HV33Z Insertion of Infusion Device into Superior Vena Cava, Percutaneous Approach (ICD-10-PCS; 2017-05-25)
DX: A41.9 Sepsis, unspecified organism (principal); J96.02 Acute respiratory failure with hypercapnia; I26.99 Other pulmonary embolism without acute cor pulmonale; I21.9 Acute myocardial infarction, unspecified; E87.2 Acidosis; J44.1 Chronic obstructive pulmonary disease with (acute) exacerbation; N17.9 Acute kidney failure, unspecified; I10 Essential (primary) hypertension; E11.8 Type 2 diabetes mellitus with unspecified complications; I46.9 Cardiac arrest, cause unspecified; Z66 Do not resuscitate; Z79.4 Long term (current) use of insulin; Z87.891 Personal history of nicotine dependence; Z83.3 Family history of diabetes mellitus; Z83.6 Family history of other diseases of the respiratory system
CPT/HCPCS: 36415; 71010; 80053; 82550; 82553; 82803; 83880; 84484; 85025; 85379; 85610; 87040; 93005; 94002; 94003; 96374; 99291; 99292; A4338; J0171; J0330; J1644; J1956; J2930; J3490; J7030; J7040